=== PATIENT | male | born 1955 | race Two or more races ===

== ENCOUNTER → 2022-09-18 | Day surgery (SDC) | payer MEDICARE, MEDICAID ==
[2022-09-16 14:57] LABS: Basophils # (auto) 0.1 10 ^3/uL (0-0.2); Basophils % (auto) 0.8 % (0.0-2.0); Eosinophils # (auto) 0.3 10 ^3/uL (0-0.8); Hematocrit 49.1 % (41.0-53.0); Hemoglobin 16.3 g/dL (13.5-17.5); Lymphocytes # (auto) 1.5 10 ^3/uL (0.4-5.4); Lymphocytes % (auto) 17.4 % (10.0-50.0); Mean Corpuscular Hemoglobin 31.4 pg (28.0-32.0); Mean Corpuscular Hgb Conc. 33.1 g/dL (32.0-36.0); Mean Corpuscular Volume 94.8 fL (80.0-100.0); Monocytes % (auto) 12.2 % (0.0-12.0); Neutrophils # (auto) 5.6 10 ^3/uL (1.6-8.6); Neutrophils % (auto) 66.6 % (37.0-80.0); Nucleated Red Blood Cells % 0.1 %; Red Blood Cells 5.18 10^6/uL (4.5-5.90); Red Cell Distribution Width 13.6 % (11.8-14.3); White Blood Cell 8.3 10^3/uL (4.4-10.8)
[2022-09-16 15:12] LABS: INR 0.96 (0.9-1.15); Partial Thromboplastin Time 27.3 sec (24.6-33.4)
[2022-09-16 15:34] LABS: Albumin 3.4 g/dL (3.4-5.0); Calcium 8.9 mg/dL (8.5-10.1); Potassium 4.7 mmol/L (3.5-5.1)
[2022-09-16 15:39] LABS: BUN/Creatinine Ratio 24.2; Bilirubin, Total 0.4 mg/dL (0.2-1.0)
[~2022-09-18] VITALS: Ht 175.3 cm; Wt 86.2 kg
[~2022-09-18] MED LIST: AMLO-489 PO; ASPI1TAB20 PO; ATEN-60 PO; ATEN100T PO; DICL50TA4 PO; DULO20CA PO; LIDOCAINE 2% (LOCAL ANESTH.) PF 5ml SDV ONE; LIDOCAINE VISCOUS 2% 15ML UD ONE; MIDAZOLAM HCL 2MG/2ML 2ml VIAL (1mg/ml) ONE; ONDA-144 PO; PANT1INJ3 IV; PANT40TA2 PO; PROPOFOL 10 MG/ML 20 ML IV ONE; ROSU5TAB5 PO; TRAZ-181 PO; ceFAZolin 1GM/50ML 100 ML IV ONE; diphenhdrAMINE HCL 50 MG/1 ML VL ONE; fentaNYL CITRATE 100 MCG/2 ML VL ONE
[2022-09-18 14:06] VITALS: BP 112/69
== END | disposition home or self-care (01) ==
LOC: GI 11:08
PROVIDERS: ATTEND Internal Medicine Gastroenterology
DX: T85.598A Other mechanical complication of other gastrointestinal prosthetic devices, implants and grafts, initial encounter (principal); Z20.822 Contact with and (suspected) exposure to COVID-19; Y83.8 Other surgical procedures as the cause of abnormal reaction of the patient, or of later complication, without mention of misadventure at the time of the procedure; K29.50 Unspecified chronic gastritis without bleeding; K44.9 Diaphragmatic hernia without obstruction or gangrene
CPT/HCPCS: 36415; 43239; 43246; 80053; 85025; 85610; 85730; J0690; J2001; J2704; J7030; U0003; J2250